=== PATIENT | female | born 1960 | race Caucasian/White ===

== ENCOUNTER 2023-12-25 08:50 | Emergency (ER) | payer OTHER, SELFPAY ==
[2023-12-25 08:57] VITALS: BP 132/59; PULSE 77; RESP 16; TEMP 36.6; O2SAT 99
--- NOTE | 2023-12-25 09:07 | ED.SKABFB ---
HPI - Skin/Abscess/Foreign Bdy General Chief complaint: Skin/Abscess/Foreign Body Stated complaint: Rash Waist and up Time Seen by Provider: 12/25/23 09:08 Source: patient, RN notes reviewed and old records reviewed Mode of arrival: ambulatory Limitations: no limitations History of Present Illness HPI narrative: 63 year old female who presents to [facility] care with complaints of itchy rash which started on Thursday night and is spreading with new area to the left side of neck noted today. Patient reports that she works at [employer] and normally wears gloves but didn't Thursday night and touched many hands when she was stamping for entry/reentry to [employer]. Patient initially noted area under chin and on forehead and area on her stomach with rash spreading to bilateral lower arms and also now on neck and increased area to stomach. Patient reports that she recently restarted her cholesterol medication but has been on same mediation before. She reports that she has been using some hydrocortisone to rash but hasn't helped. Patient denies being in may or any new skin products or any new laundry products or foods. complaint: rash Onset (ago): day(s) (2) Location: generalized Severity: moderate Quality: pruritic Treatments prior to arrival: other (hydrocortisone ream) Related Data Home Medications Medication Instructions Recorded Confirmed atorvastatin 10 mg tablet 10 mg PO DAILY 12/25/23 12/25/23 Allergies Allergy/AdvReac Type Severity Reaction Status Date / Time No Known Allergies Allergy Verified 12/25/23 09:04 Review of Systems Review of Systems: CONSTITUTIONAL: Denies fever, chills, or sweats. CARDIOVASCULAR: Denies chest pain, palpitations, or edema. RESPIRATORY: Denies cough or dyspnea. SKIN: Reports spreading red rash to face, chin, neck,abdomen, and forearms that is itchy MUSCULOSKELETAL: Denies joint pain or myalgia. NEUROLOGIC: Denies headache, numbness, or weakness. All systems reviewed & are unremarkable except as noted in HPI and below PMFSH Past Medical History Medical History (Updated 12/25/23 @ 09:39 by Yuliet Barcenas NP) Serum cholesterol elevated Surgical History Surgical History (Updated 12/25/23 @ 09:39 by Yuliet Barcenas NP) History of dilatation and curettage Social History Social History (Updated 12/25/23 @ 09:39 by Yuliet Barcenas NP) Smoking status: Never smoker Alcohol intake: current Alcohol use details: social Substance use type: does not use Living arrangements: with family Gender identity (if verbalized by the patient): Female Comments At time of signature, agree with nursing past medical, surgical, social and family history. There is no relevant family history pertinent to the presenting complaint Exam Narrative: GENERAL: Well-appearing, well-nourished, and in no acute distress. HEAD: Normocephalic, atraumatic. EYES: PERRLA, conjunctivae clear, and EOMI. ENT: Mucous membranes moist. Oropharynx without edema, erythema or lesions. NECK: Supple. No lymphadenopathy CHEST: Clear to auscultation. No respiratory distress. no cough or feelings of dyspnea, SAO2 99% on room air HEART: Regular rate and rhythm. SKIN: Warm, dry.? Patches of itchy flat red rash noted on forearms, chin,forehead, abdomen and neck, reports is spreading. NEURO:? Alert and oriented x3. PSYCH: Normal mood and affect Course Course Emergency Course: Patient is aware of diagnosis, understands and agrees to treatment plan.? Anticipatory guidance given.? Patient agrees to follow-up as directed and is aware of reasons to seek care at the emergency department. Portions of this record may have been created with voice recognition software Level of Care: Express Care Visit Vital Signs Vital signs: Vital Signs Temperature 36.6 C 12/25/23 08:57 Pulse Rate 77 12/25/23 08:57 Respiratory Rate 16 12/25/23 08:57 Blood Pressure 132/59 L 05
== END 2023-12-25 09:24 | disposition home or self-care (01) ==
PROVIDERS: Emergency Provider Registered Nurse
DX: L25.9 Unspecified contact dermatitis, unspecified cause (principal); E78.00 Pure hypercholesterolemia, unspecified
CPT/HCPCS: 99213; G0463

== ENCOUNTER 2024-12-01 14:14 | Emergency (ER) | payer OTHER, SELFPAY ==
--- OUTSIDE RECORDS SUMMARY | 2024-12-01 14:26 | XMS_ITS | Clinical Summary ---
Author Organization [address] Address [address] [place] [id number] Care Team Providers Care Neon Molder Name Role Phone No, Physician Primary Care Provider [phone] Allergies No known active allergies Medications aspirin 81 mg enteric coated tablet Take 1 tablet (81 mg total) by mouth daily 01/12/2024 5 Active rosuvastatin (CRESTOR) 20 mg tablet Take 1 tablet (20 mg total) by mouth daily 30 tablet 11 02/03/2024 5 Active Active Problems Problem Noted Date Diagnosed Date Chronic right-sided thoracic back pain Assessment & Plan (06/20/2024 1:[address] MAINTENANCE SUPERVISOR): - No red flag symptoms at this time - Discussed muscle relaxants as needed if pain returns - PT referral placed - Xray ordered today Piriformis syndrome of both sides 06/20/2024 Encounter for health maintenance examination 08/2023 Assessment & Plan (12/16/2023 12:17 PM CDT): HEALTH MAINTENANCE/SCREENING ITEMS Risk Assessments/Screenings: Blood pressure: Normal Diabetes: Ordered today Lipids: Ordered today STD testing declined Hep C: Ordered today Osteoporosis: Last Completed 05/2022; Results showed Osteopenia Depression: Depression: Not at risk (12/16/2023) PHQ-2 PHQ-2 Score: 0 Cancer Screenings: Breast: Completed 12/14/2023, results pending Cervical: Managed by OBGYN Colon: Completed in April 2020 Skin: Encouraged sun protection, advised to let us know of any suspicious lesions Lung: Not due at this time Immunizations: - up-to-date Cardiac murmur 04/09/2022 Hyperlipidemia 08/30/2021 Overview (07/22/2023): Last Assessment & Plan: ASCVD 10-year risk estimate calculated 05/28/2020 was 2.8%. Repeat lipids prior to next visit. Assessment & Plan (06/20/2024 1:[address] MAINTENANCE SUPERVISOR): - Chronic, stable - continue continue crestor Assessment & Plan (12/16/2023 12:14 PM CDT): - chronic, likely not well controlled given that she has been out of medication - refill Lipitor - recheck lipid panel today Elevated LFTs 03/13/2021 Overview (07/22/2023): Last Assessment & Plan: Trending down on most recent labs. Repeat prior to next visit. Assessment & Plan (06/20/2024 1:[address] MAINTENANCE SUPERVISOR): - Repeat LFTS now that she has increased statin Assessment & Plan (12/16/2023 12:15 PM CDT): - liver ultrasound reviewed - recheck liver function tests today Resolved Problems Problem Noted Date Diagnosed Date Resolved Date Abnormal menstrual cycle 12/16/202308/2023 Menometrorrhagia 12/16/2023 12/16/2023 Uterine leiomyoma 12/16/2023 12/16/2023 Chest pain on exertion 12/16/202306/20 Assessment & Plan (12/16/2023 12:18 PM CDT): - multiple risk factors - given this pain radiating to the left arm on exertion will further investigate with a stress test - restart Lipitor - no chest pain on exam today Trochanteric bursitis of both hips 06/19/2022 06/20/2024 Bilateral hip pain 08/30/2021 Overview (07/22/2023): Last Assessment & Plan: We will try 10-day course of nabumetone 500 mg twice daily. Also referred to physical therapy. Palpitations 08/30/2021 12/16/2023 Overview (07/22/2023): Last Assessment & Plan: Infrequent. Patient does have some dizziness/lightheadedness with the palpitations. Also reports questionable history of mitral valve pathology. We will check an echocardiogram. EKG was performed in the office today which showed normal sinus rhythm without any evidence of ischemia. Encounters Date Type Department Care Team Description 09/23/2024 Telephone [facility] at the [address] [phone] No, Physician from Last 3 Months Immunizations Immunization Administration Dates Next Due Influenza, Quadrivalent, Zeny l Culture-based MDCK, Preservative Free, Antibiotic Free, Intramuscular 06/16/2022 Influenza, Quadrivalent, Spl it, Intramuscular 05/17/2020,06/09/2019,05/11/2019 Influenza, Quadrivalent, Spl it, Preservative Free, Intramuscular 06/08/2023,06/02/2020,06/08/2018 Influenza, Trivalent, IM (MDV) 06/05/2021,2013 Influenza, Trivalent, Preser vative Free, Intramuscular 06/24/2017,06/26/2016 Influenza, Unspecified 06/20/2024(Deferr ed: Patient Refused),06/08/2023,06/02/2020, 019,05/11/2019,06/24/2017,06/26/2016 MMR 02/15/1990 Pfizer SARS-CoV-2 Monovalent Vaccination (12+ Yrs) PURPLE 10/06/2020,10/06/2020,09/08/2020,09/08 Sars-CoV-2, Unspecified 10/06/2020,09/08/2020 Td, adsorbed 02/15/1990 Tdap 06/08/2018 ZOSTER Recombinant 10/13/2018,05/03/2018 Surgical History Surgery Date Site/Laterality Comments TUBAL LIGATION 06/1994 Family History Medical History Relation Name Comments Hypertension Brother Deepak Ricketts Jr. Arthritis Father Deepak Ricketts Hypertension Father Deepak Ricketts Clotting disorder Father's Brother 1 Bang walker Clotting disorder Father's Brother 2 Denilson Ricketts Prostate cancer Maternal Grandfather Lars Macias Colon cancer Maternal Grandmother Claribel Macias Diabetes Maternal Grandmother Claribel Macias Breast cancer Maternal cousin Sonali Heart disease Mother Heather Walker Hypertension Mother Heather Walker Diabetes Mother's Brother 1 Gopi Macias Diabetes Mother's Brother 2 Denilson Macias Diabetes Mother's Brother 3 Troy Macias Cancer Paternal Grandfather Denilson Cuellar Walker Stroke Paternal Grandmother Aspen Ricketts Heart disease Sister Ruby Mckeon Hypertension Sister Ruby Mckeon Ovarian cancer Neg Hx Uterine cancer Neg Hx Relation Name Status Comments Brother Deepak Ricketts Jr. Father Deepak Ricketts Father's Brother 1 Bang walker Father's Brother 2 Denilson W Walker Maternal Grandfather Lars Macias Maternal Grandmother Claribel Macias Maternal cousin Sonali Alive Mother Heather Walker Mother's Brother 1 Gopi Macias Mother's Brother 2 Denilson Macias Mother's Brother 3 Troy Macias Paternal Grandfather Denilson A Walker Paternal Grandmother Aspen Walker Sister Rbuy Mckeon Social History Tobacco Use Types Packs/Day Years Used Date Smoking Tobacco: Never Smokeless Tobacco: Never Tobacco Cessation:Counseling Given: Not Answered Humiliation, Afraid, Rape, and Kick questionnair e Answer Date Recorded Within the last year, have y ou been afraid of your partner or ex-partner? No 08/16/2024 Within the last year, have y ou been humiliated or emotionally abused in other ways by your partner or ex-partner? No Within the last year, have y ou been kicked, hit, slapped, or otherwise physically hurt by your partner or ex-partner? No 08/16/2024 Within the last year, have y ou been raped or forced to have any kind of sexual activity by your partner or ex-partner? No 08/16/2024 PHQ-2 Answer Date Recorded PHQ-2 Total Score (If total score is 3 or more points, staff should administer the PHQ-9) 0 12/16/2023 Exercise Vital Sign Answer Date Recorde d Days of Exercise per Week Not on file 2023 On average, how many minutes do you engage in exercise at this level? 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 Not on file Not on file No t on file Obstetrics History Para Term AB IAB SAB Ectopic Multiple Livin g Live Births 4 3 3 1 1 3 3 Date Outcome GA Total Labor Labor/2nd/3rd Weight Sex Type Anes PTL Laura A1 A5 Name Clin Term Term Term SAB SAB Comments FTVD x 3 Last Filed Vital Signs Vital Sign Reading Time Taken Comments Blood Pressure 140/80 08/16/2024 10:[address] MAINTENANCE SUPERVISOR Pulse 69 06/22/2024 1:[address] MAINTENANCE SUPERVISOR Temperature 36.8 C (98.2 F) 06/22/2024 1:[address] MAINTENANCE SUPERVISOR Respiratory Rate 18 06/20/2024 11:[address] MAINTENANCE SUPERVISOR Oxygen Saturation 95% 06/20/2024 11:[address] MAINTENANCE SUPERVISOR Inhaled Oxygen Concentration - - Weight 78.2 kg (172 lb 6.4 oz) 08/16/2024 10:[address] MAINTENANCE SUPERVISOR Height 162.6 cm (5' 4 ) 08/16/2024 10:[address] MAINTENANCE SUPERVISOR Body Mass Index 29.59 08/16/2024 10:[address] MAINTENANCE SUPERVISOR Plan of Treatment Health Maintenance Due Date Last Done Comments Covid-19 Vaccine ( season) 2024 06/29/2023, 06/30/2022, 03/18/2022, Additional history exists Breast Cancer Screening-Mammogram 12/13/2024 12/14/2023, 06/01/2022, 05/30/2022, Additional history exists Depression Screening 12/15/2024 12/16/2023 Influenza Vaccine (Season Ended) 2025 06/08/2023, 06/08/2023, 06/16/2022, Additional history exists Regular Well Visit/Exam 18-64 08/16/2025 08/16/2024, 12/16/2023, 07/22/2023 Cervical Cancer Screening 11/15/2026 DTaP/Tdap/Td Vaccine (2 - Td or Tdap) 06/08/2028 06/08/2018, 02/15/1990 Colon Cancer Screening-Colonoscopy 05/16/2030 05/16/2020 Zoster Vaccine Completed 10/13/2018, 05/03/2018 Hepatitis B Screening Completed 01/14/2024 Hepatitis C Screening Completed 01/14/2024, 024 Pneumococcal vaccine <65 Aged Out No longer eligible based on patient's age to complete this topic Procedures Procedure Name Priority Date/Time Associated Diagnosis Comments HEPATIC FUNCTION PANEL Routine 09/23/2024 8:[address] MAINTENANCE SUPERVISOR Abnormal laboratory test Elevated LFTs Mixed hyperlipidemia LIPID PANEL Routine 09/23/2024 8:[address] MAINTENANCE SUPERVISOR Abnormal laboratory test Elevated LFTs Mixed hyperlipidemia HEPATITIS PANEL, ACUTE Routine 01/14/2024 7:56 AM CDT Abnormal laboratory test SCREENING MAMMOGRAM BILATERAL W TOMMY Schedule Routine, Read Routine (OP Routine) 12/14/2023 9:23 AM CDT Encounter for well woman exam with routine gynecological exam Encounter for screening mammogram for malignant neoplasm of breast from Last 3 Months or Most Recently Relevant to Health Maintenance Results * (ABNORMAL) Hepatic function panel (09/23/2024 8:[address] MAINTENANCE SUPERVISOR) Pathologist [facility] Protein, Total 7.2 6.4 - 8.4 g/dL [facility] Albumin 4.4 3.6 - 5.1 g/dL [facility] Globulin 2.8 2.2 - 4.0 g/dL (calc) [facility] Alb/glob ratio 1.6 0.9 - 2.3 (calc) [facility] Bilirubin, total 0.8 0.2 - 1.2 mg/dL [facility] Bilirubin, direct 0.2 < OR = 0.2 mg/dL [facility] Bilirubin, indirect 0.6 0.2 - 1.2 mg/dL (calc) [facility] Alk phos 68 37 - 153 U/L [facility] AST 49(H) 10 - 35 U/L [facility] ALT (SGPT) 25 6 - 29 U/L [facility] Blood 09/23/2024 8:[address] MAINTENANCE SUPERVIS[address] 09/23/2024 8:[address] MAINTENANCE SUPERVISOR Narrative [facility] - 09/24/2024 2:[address] MAINTENANCE SUPERVISOR FASTING:YES FASTING: YES us Gabrielle Hoffman MD LAB BLOOD ORDERABLES Final Result [facility] [id number] [phone] * Lipid panel (09/23/2024 8:[address] MAINTENANCE SUPERVISOR) Cholesterol 153 <200 mg/dL [facility] HDL 64 > OR = 50 mg/dL [facility] Triglycerides 131 <150 mg/dL [facility] LDL 68 mg/dL (calc) [facility] Comment: Reference range: <100 Desirable range <100 mg/dL for primary prevention; <70 mg/dL for patients with CHD or diabetic patients with > or = 2 CHD risk factors. LDL-C is now calculated using the Taj-Eben calculation, which is a validated novel method providing better accuracy than the Friedewald equation in the estimation of LDL-C. Taj AZUL et al. ELIAS. 2013;310(19): 6333-8126 (http://education.OnePageCRM.[employer]/faq/TUQ574) Chol/HDL ratio 2.4 <5.0 (calc) [facility] Non-HDL, (LDL+VLDL) 89 <130 mg/dL (calc) [facility] Comment: For patients with diabetes plus 1 major ASCVD risk factor, treating to a non-HDL-C goal of <100 mg/dL (LDL-C of <70 mg/dL) is considered a therapeutic option. Blood 09/23/2024 8:[address] MAINTENANCE SUPERVISOR 09/23/2024 8:[address] MAINTENANCE SUPERVISOR Narrative [facility] - 09/24/2024 3:[address] MAINTENANCE SUPERVISOR FASTING:YES FASTING: YES Gabrielle Hoffman MD LAB BLOOD ORDERABLES Final Result [facility] [address] [phone] * Hepatitis panel, acute Blood (01/14/2024 7:56 AM CDT) Hep A IgM NON-REACTI VE NON-REACT EVIN [facility] Comment: For additional information, please refer to http://[employer]/faq/UMH201 (This link is being provided for informational/ educational purposes only.) HepBsAg NON-REACTI VE NON-REACT EVIN [facility] Comment: For additional information, please refer to http://[employer]/faq/GQL608 (This link is being provided for informational/ educational purposes only.) Hep B core IgM NON-REACTI VE NON-REACT EVIN [facility] Comment: For additional information, please refer to http://[employer]/faq/BSG977 (This link is being provided for informational/ educational purposes only.) Hep C Ab NON-REACTI VE NON-REACT EVIN [facility] Comment: HCV antibody was non-reactive. There is no laboratory evidence of HCV infection. In most cases, no further action is required. However, if recent HCV exposure is suspected, a test for HCV RNA (test code 33964) is suggested. For additional information please refer to http://[employer]/faq/JBB09v1 (This link is being provided for informational/ educational purposes only.) Blood 01/14/2024 7:56 AM CDT 01/14/2024 7:57 AM CDT Narrative [facility] - 01/15/2024 7:46 AM CDT FASTING:YES FASTING: YES us Gabrielle Hoffman MD LAB MICROBIOLOGY - GENERAL ORDERABLES Final Result [facility] [id number] [phone] * Screening Mammogram Bilateral W Tommy (12/14/2023 9:23 AM CDT) Anatomical Region Laterality Modality Breast Bilateral Mammography 12/29/2023 8:23 AM CDT Impressions 12/29/2023 8:23 AM CDT There is no mammographic evidence of malignancy. A 1 year screening mammogram is recommended. BI-RADS: 1 - Negative. The patient has been or will be contacted. The patient will be entered into a reminder system with a target due date of 1 year for her next mammogram. Electronically signed by: Lamonte Parkinson M.D. Narrative 12/29/2023 8:23 AM CDT EXAMINATION: SCREENING MAMMOGRAM BILATERAL W TOMMY ORDERING HEALTHCARE PROVIDER: NDIHI HERNANDEZ HISTORY: Routine screening mammography. COMPARISON: Prior mammograms from [facility] ([place], [place]) dated 05/30/2022 and 04/25/2021. TECHNIQUE: CC and MLO views of the bilateral breasts were obtained with digital technique using breast tomosynthesis with C view. Computer aided detection was utilized. FINDINGS: DENSITY: The tissue of the bilateral breasts is heterogeneously dense, which may obscure small masses. BREASTS: There are no suspicious masses, suspicious calcifications, or other suspicious findings in either breast. There has been no suspicious interval change. us Nidhi Hernandez MD IMG MAMMO PROCEDURES Final Result from Last 3 Months or Most Recently Relevant to Health Maintenance Insurance [employer] [facility] [place]MO/[place] [address] [place] [address] Care Teams Neon Molder Relationship Specialty Start Date End Date No, Physician PCP - General 11/17/24
--- OUTSIDE RECORDS SUMMARY | 2024-12-01 14:26 | XMS_ITS | Data Portability ---
Author Organization MAYELA - Angelika plaza MD SIngridC., [facility] - IP Address [address] [place] [address] Care Team Providers Care Teleradiologist Name Role Phone REINA MCWILLIAMS Primary Care Provider Assessment Encounter Date Assessment Date Assessment LastModified by Organization Details LastModified Time 01/19/2018 01/19/2018 57 years old white female here for an annual PLYWOOD MATCHER examination. Patient is postmenopausal. She is has symptoms of hot flashes and night sweats. Patient however wants no HRT. She has tried wdng-igo-fcewhde supplements with no relief. Patient was recommended that she should take calcium with vitamin D twice a day. Calcium intake for the day was addressed. Patient recommended pelvic exam once a year. Pap smear every three years. Mammogram once a year. She is due for a colonoscopy in two years. Not available 01/19/2018 13:04:54 03/30/2019 03/30/2019 58 years old white female postmenopausal annual PLYWOOD MATCHER examination with severe symptoms of estrogen deficiency. Patient was counseled and recommended HRT patient wants to. Side effects risks and benefits of HRT was addressed. Patient was recommended low does HRT Prempro 0.3/1.5 mg one tablet Q daily. Patient was recommended one tablet for one daily for one month and if she doesn't feel better she can go up to two tablets a day. Patient to call as if she needs for prescription after 90 days. Patient was recommended that she should have screening mammogram once a year. Pelvic exam once a year. Pap smear every three years. Patient states she is due for a colonoscopy again soon. Recommended to continue calcium with vitamin D twice a day OTC. Not available 03/30/2019 15:35:15 04/10/2020 04/10/2020 59 years old postmenopausal white female annual PLYWOOD MATCHER examination. Her PLYWOOD MATCHER exam today is normal recommended pelvic exam once a year Paap smear every year. Screening mammogram Had one yesterday which is normal. Recommended to continue vitamin D3 as before. Not available 04/10/2020 11:42:45 04/26/2021 04/26/2021 61 years old white female here for an annual PLYWOOD MATCHER examination. PLYWOOD MATCHER exam reveals atropic vaginae a. She does have symptoms of estrogen deficiency however patient does not want to take any estrogen. Patient was recommended to try OTC supplements for her hot flashes and night sweats also recommended bed moisturizers [id number]-zpeqjtr. Recommended screening mammogram once a year. Pap smear every year. Pelvic exam once a year. Not available 04/26/2021 11:14:26 04/30/2022 04/30/2022 62 years old white female here for an annual PLYWOOD MATCHER examination. 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 Patient was counseled again regarding HRT side effects risks and benefits were addressed pros and cons of HRT was addressed patient was told that her out her benefits outweigh the risks patient also was counseled regarding benefits on the heart and asked in the bones to prevent osteoporosis. Patient recommended screening mammogram once a year patient to call and schedule. She also wants an automated breast ultrasound patient to call insurance first and get back to us and we will send the order. Patient also was recommended a bone density as she is being in menopause for 5 years now. Patient voices understanding patient was told that all of those needs to be called and scheduled at [facility]. Recommended pelvic exam once a year Pap smear every year. Patient question regarding her last year Pap of ASCUS negative HPV was addressed. Patient to continue vitamin D3 as before. She patient was provided with the website of menopause. org patient was recommended to go on the website and get more information and then call us if she decides to go on HRT. Not available 04/30/2022 12:24:04 Plan of Treatment Reminders Order Date Submit Date Provider Last Modified By Organization Details Last Modified Time Details Appointments None recorded. Lab pap, LB + HPV 2021 022 [facility] (Outpt Lab), [address] [place] [address], [address], 2 14:26:23 pap, LB + reflex HR HPV 2020 021 [facility] (Outpt Lab), [address] [place] [address], [address], 1 14:10:37 pap, LB + reflex HR HPV 2019 020 [facility] (Outpt Lab), [address] [place] [address], [address], 0 16:09:55 pap, LB + HPV 2018 019 [facility] (Outpt Lab), [address] [place] [address], [address], 9 14:26:16 pap, LB + reflex HR HPV 2017 018 [facility] ([facility]), [address], [place], [address], 8 13:57:43 Referral None recorded. Procedures None recorded. Surgeries None recorded. Imaging MAMMO, screening, bilateral 2021 022 [facility] (Central Scheduling), [address] [place] [address], [address], 2 06:51:22 bone density - [facility] usal 2021 [facility] [address] [place] [address], [address], 2 10:00:46 Medication Orders Prempro 0.3 mg-1.5 mg tablet 2018 019 [id number], [address] [place], [address], 9 15:32:04 Patient TargetsNo targets recorded. Patient Instructions Encounter Date Encounter Id Patient Instructions Last Modified By Organization Details Last Modified Time 01/19/2018 [id number] Follow-up in one year [place] [address] Not available 01/19/2018 13:05:12 03/30/2019 [id number] [facility] Not [facility] 03/30/2019 15:35:31 04/10/2020 [id number] Follow-up in one year [place] [address] Not available 04/10/2020 11:42:58 04/26/2021 [id number] Follow-up in one year [place] [address] Not available 04/26/2021 11:14:28 04/30/2022 [id number] Follow-up in 1 year [place] [address] Not available 04/30/2022 12:23:06 Reason for Referral None Reported. Results Created Date Observation Date Name Description Value Unit Range Abnormal Flag Note LastModifiedBy Organization Detail LastModifiedTime 01/20/20 18 01/21/2018 pap, LB Pap test thin prep NEGATI VE FOR INTRAE PITHEL IAL LESION OR MALIGN MARCO normal ACCES JANETH #: [id number] Sourc e: Cervi vladislav/E ndoce rvica l LMP: Post menop ausal Date Taken : 01/19 Speci men Type: ThinP rep Vial Date Repor syl: 01/21 Clini vladislav Data: LMP: Post menop ausal Cytot ech: Compa el Beu CT( CP) Speci men Adequ acy: Satis facto ry for evalu ation Endoc ervic al/tr ansfo rmati on zone compo nent prese nt Gener al Categ oriza tion: NEGAT EVIN FOR INTRA EPITH ELIAL LESIO N OR BRITTNEY LANDIN Study for HPV testi ng not indic ated. This speci men has been thompson zed by the ThinP rep Imagi ng Syste m, an inter activ e compu ter syste m which adilia ts the lab in the [facility] of ThinP rep Pap Test slide s. Follo wing imagi ng, the slide was revie wed by a Cytot echno logis t and/o r Patho logis t. Techn ical servi jesus provi ded by: [facility], [facility] d/b/a [facility] [address], [address] [place] [address] Saira cunningham M.D., [facility] Case revie wed and diagn osis rende red at: [facility] [address], [address] [place] [address] Saira cunningham M.D., [facility] ----- ----- ----- ----- ----- ----- ----- ----- ----- ----- ----- ----- Not Available [facility]) [facility] [place], [place], [address], 01/21/2018 13:57:43 03/30/20 19 03/30/2019 HPV DNA, high- risk HPV16 Negati ve for HPV type 16 DNA negati ve for HPV type [address] [facility] (Main Lab/Imaging) [address] [place], [address], 04/04/2019 13:31:51 03/30/2003/30/2019 HPV DNA, high- risk HPV18 Negati ve for HPV type 18 DNA negati ve for HPV type [address] [facility] (Main Lab/Imaging) [address] [place], [address], 04/04/2019 13:31:51 03/30/2003/30/2019 HPV DNA, high- risk other high risk HPV Negati ve for the DNA of all of the follow ing high-r isk HPV types: 31,33, 35,39, 49,51, 52,56, 59,66, 68. negati ve for the DNA of all of the follow ing high-r isk HPV t Not Available [facility] (Main Lab/Imaging) [address] [place], [address], 04/04/2019 13:31:51 03/30/20 19 03/30/2019 pap, IG + HR HPV lab AP case report Gynec ologi c Cytol ogy Repor t Case: [id number] Autho nick cabral Provi cedrick: Tanya posadas MD Colle cted: 03/30 1403 Order ing [facility]at [facility] Recei brigid: 03/31 1046 First Scree n: Terrance Miranda , CT Rescr een: Eriberto durant MD Speci men: ThinP rep Pap Test, Scree kera and HPV Detec tion Combi natio n, Image r Adilia syl, Cervi x/End ocerv ix Not Available [facility] (Main Lab/Imaging) [address] [place], [address], 04/06/2019 16:22:31 03/30/20 19 03/30/2019 pap, IG + HR HPV lab AP clinical information LMP: Post menop ausal Other Clini vladislav Data: Laser /cryo thera py and leep cone biops y Not Available [facility] (Main Lab/Imaging) [address] [place], [address], 04/06/2019 16:22:31 03/30/2003/30/2019 pap, IG + HR HPV lab AP profiler hand specimen adequacy Satisf actory for evalua tion; adequa te transf ormati on zone/e ndocer vical compon ent presen t. Not Available [facility] (Main Lab/Imaging) [address] [place], [address], 04/06/2019 16:22:31 03/30/20 19 03/30/2019 pap, IG + HR HPV lab AP profiler hand general categorizati on Squamo us cell abnorm ality. Not Available [facility] (Main Lab/Imaging) [address] [place], [address], 04/06/2019 16:22:31 03/30/20 19 03/30/2019 pap, IG + HR HPV [facility] lab lab AP profiler hand interpretati on abnormal Atypi vladislav squam ous cells of undet ermin ed bernardo nunez( CUS) Elect toya eddy by Eriberto durant MD on 2018 at 3:22 PM Not Available [facility] (Main Lab/Imaging) [address] [place], [address], 04/06/2019 16:22:31 03/30/20 19 03/30/2019 pap, IG + HR HPV comments Thompson sis of this sampl e has been adilia syl by an autom ated imagi ng and revie w syste m (Thin Prep Imagi ng Syste m, Cytyc Corpo ratio n, [facility] giorgio [place]). The case is furth er evalu ated and final ized by a cytot echno logis t and/o r patho logis t. Not Available [facility] (Main Lab/Imaging) [address] [place], [address], 04/06/2019 16:22:31 03/30/20 19 03/30/2019 pap, IG + HR HPV recommendati ons The Pap test is subje ct to both false -nega tive and false -posi tive resul ts, as evide nced by publi shed data. Your patie nt's resul ts shoul d be inter prete d in this tere xt, toget her with histo ry and clini vladislav findi ngs. Not Available [facility] (Main Lab/Imaging) [address] [place], [address], 04/06/2019 16:22:31 03/30/20 19 03/30/2019 pap, IG + HR HPV lab AP embedded images Not Available [facility] (Main Lab/Imaging) [address] [place], [address], 04/06/2019 16:22:31 04/10/20 20 04/10/2020 pap, IG + refle x HPV lab AP case report Gynec ologi c Cytol ogy Repor t Case: [id number] Autho nick cabral Provi cedrick: MD Edie Frank cted: 04/10 1019 Order ing [facility]at [facility] Recei brigid: 04/11 0710 First Scree n: Terrance Miranda , CT Speci men: ThinP rep Pap Test, Scree kera with HPV Refle x, Image r Adilia syl, Cervi x/End ocerv ix Not Available [facility] (Main Lab/Imaging) [address] [place], [address], 04/13/2020 15:42:12 04/10/20 20 04/10/2020 pap, IG + refle x HPV lab AP clinical information LMP: UNKNOW N Not Available [facility] (Main Lab/Imaging) [address] [place], [address], 04/13/2020 15:42:12 04/10/20 20 04/10/2020 pap, IG + refle x HPV lab AP profiler hand specimen adequacy SATISF ACTORY FOR EVALUA TION; ADEQUA TE TRANSF ORMATI ON ZONE/E NDOCER VICAL COMPON ENT PRESEN T. Not Available [facility] (Main Lab/Imaging) [address] [place], [address], 04/13/2020 15:42:12 04/10/20 20 04/10/2020 pap, IG + refle x HPV [facility] lab lab AP profiler hand interpretati on Negat evin for intra epith elial lesio n or brittney landin (NIL) . Elect toya eddy by Terrance Miranda , CT on 2019 at 2:41 PM Not Available [facility] (Main Lab/Imaging) [address] [place], [address], 04/13/2020 15:42:12 04/10/20 20 04/10/2020 pap, IG + refle x HPV comments Thompson sis of this sampl e has been adilia syl by an autom ated imagi ng and timmy w arnav m (Thin Prep Imagi ng Syste m, Cytyc Corpo ratio n, [employer] giorgio , [place]). The case is furth er evalu ated and final ized by a cytot echno logis t and/o r patho logis t. Not Available [facility] (Main Lab/Imaging) [address] [place], [address], 04/13/2020 15:42:12 04/10/20 20 04/10/2020 pap, IG + refle x HPV recommendati ons The Pap test is subje ct to both false -nega tive and false -posi tive resul ts, as evide nced by publi shed data. Your patie nt's resul ts shoul d be inter prete d in this tere xt, toget her with histo ry and clini vladislav findi ngs. Not Available [facility] (Main Lab/Imaging) [address] [place], [address], 04/13/2020 15:42:12 04/10/20 20 04/10/2020 pap, IG + refle x HPV lab AP embedded images Not Available [facility] (Main Lab/Imaging) [address] [place], [address], 04/13/2020 15:42:12 04/26/20 21 04/26/2021 THIN PREP PAP TEST WITH HPV REFLE X lab AP case report Gynec ologi c Cytol ogy Repor t Case: [id number] Autho nick g Provi cedrick: Tanya posadas MD Colle cted: 04/26 0949 Order ing [facility]at [facility] Recei brigid: 04/29 1152 First Scree n: Terrance Miranda , CT Patho logis t: Eriberto durant MD Speci men: ThinP rep Pap Test, Scree kera with HPV Refle x, Image r Adilia syl, Cervi x/End ocerv ix Not Available [facility] (Main Lab/Imaging) [address] [place], [address], 05/03/2021 12:51:04 04/26/20 21 04/26/2021 THIN PREP PAP TEST WITH HPV REFLE X lab AP clinical information LMP: Post menopa usal Not Available [facility] (Main Lab/Imaging) [address] [place], [address], 05/03/2021 12:51:04 04/26/20 21 04/26/2021 THIN PREP PAP TEST WITH HPV REFLE X lab AP profiler hand specimen adequacy Satisf actory for evalua tion; adequa te transf ormati on zone/e ndocer vical compon ent presen t. Not Available [facility] (Main Lab/Imaging) [address] [place], [address], 05/03/2021 12:51:04 04/26/20 21 04/26/2021 THIN PREP PAP TEST WITH HPV REFLE X lab AP profiler hand general categorizati on Squamo us cell abnorm ality. Not Available [facility] (Main Lab/Imaging) [address] [place], [address], 05/03/2021 12:51:04 04/26/20 21 04/26/2021 THIN PREP PAP TEST WITH HPV REFLE X [facility] lab lab AP profiler hand interpretati on abnormal Atypi vladislav squam ous cells of undet ermin ed bernardo nunez( CUS) Elect toya eddy by Eriberto durant MD on 2020 at 11:50 AM Not Available [facility] (Main Lab/Imaging) [address] [place], [address], 05/03/2021 12:51:04 04/26/20 21 04/26/2021 THIN PREP PAP TEST WITH HPV REFLE X comments Thompson sis of this sampl e has been adilia syl by an autom ated imagi ng and timmy josé m (Thin Prep Imagi ng Syste m, Cytyc Corpo ratio n, Emmett alvares [place]). The case is furth er evalu ated and final ized by a cytot echno logis t and/o r patho logis t. Dr. Fredy warner wed the case as part of the [facility] log[facility] quali ty assur ance proce ss and she concu rs with the diagn osis. Not Available [facility] (Main Lab/Imaging) [address] [place], [address], 05/03/2021 12:51:04 04/26/2004/26/2021 THIN PREP PAP TEST WITH HPV REFLE X recommendati ons The Pap test is subjec t to both false- negati ve and false- positi ve result s, as eviden carroll by publis hed data. Your patien t's result s should be interp reted in this contex t, togeth er with histor y and clinic al findin gs. Not Available [facility] (Main Lab/Imaging) [address] [place], [address], 05/03/2021 12:51:04 04/26/2004/26/2021 HPV DNA PROBE , AMPLI FIED HPV16 Negati ve for HPV type 16 DNA negati ve for HPV type 16 DNA, indete rminat e for HPV type [address] [facility] (Main Lab/Imaging) [address] [place], [address], 05/07/2021 14:43:50 04/26/2004/26/2021 HPV DNA PROBE , AMPLI FIED HPV18 Negati ve for HPV type 18 DNA negati ve for HPV type 18 DNA, indete rminat e for HPV type [address] [facility] (Main Lab/Imaging) [address] [place], [address], 05/07/2021 14:43:50 04/26/20 21 04/26/2021 HPV DNA PROBE , AMPLI FIED other high risk HPV Negati ve for the DNA of all of the follow ing high-r isk HPV types: 31,33, 35,39, 49,51, 52,56, 59,66, 68. negati ve for the DNA of all of the follow ing high-r isk HPV t Not Available [facility] (Main Lab/Imaging) [address] [place], [address], 05/07/2021 14:43:50 04/30/20 22 04/30/2022 HPV DNA PROBE , AMPLI FIED HPV16 Negati ve for HPV type 16 DNA negati ve for HPV type 16 DNA, indete rminat e for HPV type 16 Not Available [facility] (Main Lab/Imaging) [address] [place], [address], 05/01/2022 13:45:18 04/30/20 22 04/30/2022 HPV DNA PROBE , AMPLI FIED HPV18 Negati ve for HPV type 18 DNA negati ve for HPV type 18 DNA, indete rminat e for HPV type 18 Not Available [facility] (Main Lab/Imaging) [address] [place], [address], 05/01/2022 13:45:18 04/30/20 22 04/30/2022 HPV DNA PROBE , AMPLI FIED other high risk HPV Negati ve for the DNA of all of the follow ing high-r isk HPV types: 31,33, 35,39, 49,51, 52,56, 59,66, 68. negati ve for the DNA of all of the follow ing high-r isk HPV t Not Available [facility] (Main Lab/Imaging) [address] [place], [address], 05/01/2022 13:45:18 04/30/20 22 04/30/2022 THIN PREP PAP TEST, MARTINEE KERA diagnosis: Commen t NEGAT EVIN FOR INTRA EPITH ELIAL LESIO N OR MALPAKO LANDIN . Not Available [facility] (Main Lab/Imaging) [address] [place], [address], 05/07/2022 15:07:28 04/30/20 22 04/30/2022 THIN PREP PAP TEST, SCREE KERA specimen adequacy: Sergei t Satis facto ry for evalu ation . Endoc ervic al and/o r squam ous metap lasti c cells (endo cervi vladislav compo nent) are prese nt. Not Available [facility] (Main Lab/Imaging) [address] [place], [address], 05/07/2022 15:07:28 04/30/20 22 04/30/2022 THIN PREP PAP TEST, SCREE KERA clinician provided ICD10: Sergei cunningham Z01.4 19 Not Available [facility] (Main Lab/Imaging) [address] [place], [address], 05/07/2022 15:07:28 04/30/20 22 04/30/2022 THIN PREP PAP TEST, SCREE KERA performed by: Rhonda Robertson (ASCP ) Not Available [facility] (Main Lab/Imaging) [address] [place], [address], 05/07/2022 15:07:28 04/30/20 22 04/30/2022 THIN PREP PAP TEST, SCREE KERA . . Not Available [facility] (Main Lab/Imaging) [address] [place], [address], 05/07/2022 15:07:28 04/30/20 22 04/30/2022 THIN PREP PAP TEST, SCREE KERA note: Sergei cunningham The Pap smear is a scree kera test desig domenica to aid in the detec tion of sandra ligna nt and malig nant condi tions of the uteri ne cervi x. It is not a diagn ostic proce dure and shoul d not be used as the sole means of detec ting cervi vladislav cance r. Both false -posi tive and false -nega tive repor ts do occur . Not Available [facility] (Main Lab/Imaging) [address] [place], [address], 05/07/2022 15:07:28 04/30/20 22 04/30/2022 THIN PREP PAP TEST, SCRENelda REYESG Pap Ig Commen t This liqui d based ThinP rep(R ) pap test was scree domenica with the use of an image guide d syste m. Not Available [facility] (Main Lab/Imaging) [address] [place], [address], 05/07/2022 15:07:28 01/14/20 18 scree kera mammo 3D - bilat eral DICTAT ING PHYSIC DONAVAN: Dedrick collado DO, [facility]. EXAM: SCREEN ING MAMMO 3D - BILATE RAL 018 11:57 AM COMPAR PHUC: Mammog marshall dated 017, 2014, 2013, 013, 04/24/20 12, 03/06/ 011, 01/25/2 010, 11/27/2 009, 09/02/ 008, 007 HISTOR Y: Annual screen ing mammog marshall. No compla ints. TECHNI QUE: Standa rd bilate ral mammog raphic views were obtain ed. Additi onal 3-D tomogr aphic mammog marshall was also obtain ed (tomos ynthes is, which consis ts of multip lanar projec tions with comput er image recons tructi on into 1 mm parall el slices ). Curren t study was also evalua syl with a Comput er Aided Detect ion (CAD) system . FINDIN GS: The tissue densit y of both breast s are scatte red areas of fibrog landul ar densit y. There are no suspic ious masses , calcif icatio ns, or other signif icant findin gs. There has been no signif icant interv al change . IMPRES JANETH: There is no mammog raphic eviden ce of malign marco. RECOMM ENDATI ON: Annual screen ing mammog marshall. BIRADS 1: Negati ve [facility] (Main Lab/Imaging) [address] [place], [address], 01/19/2018 12:17:46 03/29/20 19 03/16/2019 MAMMO , scree kera, bilat eral No observ ation record ed. [facility] [address] , [place], [address], 03/30/2019 15:18:06 04/09/20 20 MAMMO , scree kera, bilat eral DICTAT ING PHYSIC DONAVAN: Dedrick collado DO, [facility]. EXAM: SCREEN ING MAMMO 3D - BILATE RAL 020 8:15 AM COMPAR PHUC: Mammog marshall dated 019, 018, 017, 2014, 2013, 013, 04/24/20 12, 03/06/2 011, 01/25/2 010, 11/27/2 009, 09/02/ 008, 08/31/ 007 HISTOR Y: Annual screen ing mammog marshall. No compla ints. TECHNI QUE: Standa rd bilate ral mammog raphic views were obtain ed. Additi onal 3-D tomogr aphic mammog marshall was also obtain ed. Curren t study was also evalua syl with a Comput er Aided Detect ion (CAD) system . FINDIN GS: The tissue densit y of both breast s are hetero genous ly dense, which may obscur e small masses . There are no suspic ious masses , calcif icatio ns, or other signif icant findin gs. There has been no signif icant interv al change . IMPRES JANETH: There is no mammog raphic eviden ce of malign marco. RECOMM ENDATI ON: Annual screen ing mammog marshall. BIRADS 1: Negati ve [facility] (Main Lab/Imaging) [address] [place], [address], 04/09/2020 17:53:42 04/25/20 21 MAMMO , scree kera, bilat eral DICTAT ING PHYSIC DONAVAN: Benji Hamilton MD EXAM: SCREEN ING MAMMO 3D - BILATE RAL 04/25/20 21 7:45 AM COMPAR PHUC: Mammog marshall dated 020, 019 HISTOR Y: Annual screen ing mammog marshall. No compla ints. TECHNI QUE: Standa rd bilate ral mammog raphic views were obtain ed. Additi onal 3-D tomogr aphic mammog marshall was also obtain ed. Curren t study was also evalua syl with a Comput er Aided Detect ion (CAD) system . FINDIN GS: The tissue densit y of both breast s are hetero genous ly dense, which may obscur e small masses (Categ ory C). There are no suspic ious masses , calcif icatio ns, or other signif icant findin gs. There has been no signif icant interv al change . IMPRES JANETH: There is no mammog raphic eviden ce of malign marco. RECOMM ENDATI ON: Annual screen ing mammog marshall. BIRADS 1: Negati ve [facility] (Main Lab/Imaging) [address] [place], [address], 04/26/2021 11:02:27 06/01/20 22 MAMMO , screnelda reyesg, bilat eral PROCED URE: SCREEN ING MAMMO 3D - BILATE RAL INDICA TION: Annual screen ing mammog marisa. No compla ints. TECHNI QUE: Standa rd bilate ral mammog raphic views were obtain ed. Additi onal 3D tomogr aphic mammog marshall was also obtain ed. Curren t study was also evalua syl with a Comput er Aided Detect ion (CAD) system . COMPAR PHUC: Compar phuc made with previo us examin ation( s) dated (MG) , (MG) . FINDIN GS: The breast s are hetero geneou sly dense, which may obscur e small masses . (Categ ory C) No suspic ious masses , calcif icatio ns, nicholas ectura l distor tion or other findin gs. IMPRES JANETH: There is no mammog raphic eviden ce of malign marco. RECOMM ENDATI ON: Annual screen ing mammog marshall. BIRADS 1: Negati ve. [facility] (Main Lab/Imaging) [address] [place], [address], 06/01/2022 13:34:19 06/12/20 22 bone densi ty DEXA BONE DENSIT Y ROUTIN E : 2021 9:56 AM DICTAT ING PHYSIC DONAVAN: Chris gage MD, [facility] HISTOR Y: As below. ADDITI ONAL TECHNO LOGIST HISTOR Y: Per order screen ing for osteop orosis , post menopa usal COMPAR PHUC: None. TECHNI QUE: Dual energy x-ray absorp tiomet ry was perfor med. FINDIN GS: Lumbar spine: BMD 0.947 g/cm2, T score -0.9 , Z score 0.6 , classi ficati on Normal . The lowest densit y level is L4 with a T score of -1.6. Right femora l neck: BMD 0.711 g/cm2 , T score -1.2 , Z score 0.1 , classi ficati on Osteop enia. Right total hip: BMD 0.873 g/cm2 , T score -0.6 , Z score 0.4 , classi ficati on Normal . IMPRES JANETH: Right femora l neck osteop enia. FRAX assess ment would indica te a 10 year probab ility of major osteop orotic fractu re of 7.4 %, and hip fractu re of 0.5 %. dguiney [facility] (Main Lab/Imaging) [address] [place], [address], 06/25/2022 10:00:46 08/12/20 22 US, autom ated whole breas t, bilat eral DICTAT ING PHYSIC DONAVAN: Benji Hamilton MD, [facility]. EXAM: ULTRAS OUND BREAST SCREEN ING (ABUS) BILATE RAL 2021 2:00 PM COMPAR PHUC: Mammog marshall dated 2021 HISTOR Y: Screen ing bilate ral breast ultras ound for dense breast s. No compla ints. TECHNI QUE: Bilate ral 3D Automa syl whole breast ultras ound was perfor med utiliz ed the 6-15 MHz GE Inveni a ABUS system . All four quadra nts of the right and left breast and subare olar region s were evalua syl. FINDIN GS: The backgr ound echote xture of both breast s are hetero genous backgr ound echote xture. There are no suspic ious sonogr aphic findin gs in either breast . IMPRES JANETH: There is no sonogr aphic eviden ce of malign marco. RECOMM ENDATI ON: Annual screen ing mammog marshall. BIRADS 1: Negati ve dguiney [facility] (Main Lab/Imaging) [address] [place], [address], 08/19/2022 10:44:51 Result Notes None recorded. Problems Name Problem SNOMED Code Status Onset Date Resolution Date Notes Provider Name and Address Organization Details Recorded Time Abnormal menstrual cycle 51762519 Active Angelika tran MD [address], [address], [place] - Angelika Capone MD [facility] 6 17:49:21 Menometrorrhag ia 772962361 Active Angelika tran MD [address], [address], [place] - Angelika Capone MD [facility] 6 17:49:21 Uterine leiomyoma 99095944 Active Angelika tran MD [address] [facility] [address], [place], [address], MAYELA Capone MD [facility] 6 21:40:00 Problem Notes None recorded. Procedures Surgical History Date Name Laterality Status Provider Name and Address Organization Details Recorded Time 04/30/20 22 Date of Last Pap Smear completed Belle Capone MD [facility] 04/30/2022 11:55:55 04/25/20 21 Most Recent Mammogram completed Belle Capone MD [facility] 04/26/2021 10:46:31 05/16/20 20 Colonoscopy completed Belle Capone MD [facility] 04/26/2021 10:48:35 10/05/19 14 Dilation and Curettage completed Amalia Capone MD [facility] 10/20/2014 15:20:02 10/05/19 14 Hysteroscopy completed Amalia Capone MD [facility] 10/20/2014 15:20:02 Imaging Results Imaging Date Name Status LastModified by Organiz ation Details LastModified Time 01/13/2018 screening mammo 3D - bilateral completed [address] [facility] (Main Lab/Imaging) [address] [place], [address], 01/19/2018 12:17:46 03/16/2019 MAMMO, screening, bilateral completed [address] [facility] [address] [place] [address] [place], [address], 03/30/2019 15:18:06 04/09/2020 MAMMO, screening, bilateral completed [address] [facility] (Main Lab/Imaging) [address] [place], [address], 04/09/2020 17:53:42 04/25/2021 MAMMO, screening, bilateral completed [address] [facility] (Main Lab/Imaging) [address] [place], [address], 04/26/2021 11:02:27 06/01/2022 MAMMO, screening, bilateral completed [facility] (Main Lab/Imaging) [address] [place], [address], 06/01/2022 13:34:19 06/12/2022 bone density completed [facility] (Main Lab/Imaging) [address] [place], [address], 06/25/2022 10:00:46 08/12/2022 US, automated whole breast, bilateral completed [facility] (Main Lab/Imaging) [address] [place], [address], 08/19/2022 10:44:51 Procedure Notes None recorded. Medical Equipment None Reported. Allergies No known drug allergies Medications Name Sig Start Date Stop Date Status Note LastModified by Organization Details LastModified Time cyclobenzap rine 10 mg tablet active Not Available Not Available Not Available amoxicillin 500 mg capsule active Not Available Not Available Not Available medroxyprog esterone 10 mg tablet Take 1 tablet every day by oral route for 10 days. 01/19 completed Not Available Not Available Not Available atorvastati n 10 mg tablet TAKE ONE TABLET BY MOUTH ONCE DAILY active Not Available Not Available No t Available ibuprofen 800 mg tablet TAKE ONE TABLET BY MOUTH EVERY SIX HOURS NEEDED for mild pain for up to 7 days 04/26 completed Not Available Not Available Not Available hydrocodone 5 mg-acetamin ophen 325 mg tablet active Not Available Not Available No t Available meloxicam 15 mg tablet active Not Available Not Available Not Available prednisone 20 mg tablet 01/19 completed Not Available Not Available Not Available nabumetone 500 mg tablet TAKE ONE TABLET BY MOUTH TWO TIMES DAILY FOR 10 DAYS 04/30 completed Not Available Not Available Not Available Prempro 0.3 mg-1.5 mg tablet TAKE ONE TABLET BY MOUTH AT BEDTIME 04/07 completed Not Available Not Available Not Available Calcium 500 + D (D3) active Not Available Not Available Not Available azelastine 205.5 mcg (0.15 %) nasal spray 11/10 completed Not Available Not Available Not Available Suprep Bowel Prep Kit 17.5 gram-3.13 gram-1.6 gram oral solution 04/26 completed Not Available Not Available Not Available Cyclafem (28) 1 mg-35 mcg tablet active Not Available Not Available Not Available ICaps AREDS 04/30 completed Not Available Not Available Not Available Fluvirin 3654-9429 45 mcg (15 mcg x 3)/0.5 mL intramuscul ar suspension INJECT 0.5 ML INTRAMUSC ULARLY DIRECTED. active Not Available Not Available No t Available Fluvirin 9250-7198 45 mcg (15 mcg x 3)/0.5 mL intramuscul ar suspension ADM 0.5ML IM UTD 11/10 completed Not Available Not Available Not Available Shingrix (PF) 50 mcg/0.5 mL intramuscul ar suspension, kit ADM 0.5ML IM UTD 03/30 completed Not Available Not Available Not Available Afluria Quad 0208-8013 (PF) 60 mcg (15 mcg x 4)/0.5 mL IM syringe ADM 0.5ML IM UTD 03/30 completed Not Available Not Available Not Available Afluria Qd 2018- (36 mos up)(PF)60 mcg (15 mcg x4)/0.5 mL IM syringe ADM 0.5ML IM UTD 04/07 completed Not Available Not Available Not Available ID NOW COVID-19 Test Kit TEST DIRECTED TODAY 04/30 completed Not Available Not Available Not Available Vitals Date Recorded Body weight Body mass index (BMI) Body height Heart rate Systolic blood pressure Diastolic blood pressure Provider Name and Address Organization Details Last Updated DateTime 8 34686.2 g 25.1 kg/m2 162.56 cm 66 /min 124 mm[Hg] 82 mm[Hg] Belle Capone [facility] 8 11:52:10 Date Recorded Body height Body mass index (BMI) Body weight Systolic blood pressure Diastolic blood pressure Provider Name and Address Organization Details Last Updated DateTime 03/30/2019 162.56 cm 26.5 kg/m2 56615.66 g 124 mm[Hg] 70 mm[Hg] Belle Capone [facility] 9 15:05:17 Date Recorded Body height Body mass index (BMI) Body weight Systolic blood pressure Diastolic blood pressure Provider Name and Address Organization Details Last Updated DateTime 04/10/2020 162.56 cm 27.3 kg/m2 84671.19 g 118 mm[Hg] 78 mm[Hg] Belle Capone [facility] 0 11:21:11 Date Recorded Body height Body mass index (BMI) Body weight Systolic blood pressure Diastolic blood pressure Provider Name and Address Organization Details Last Updated DateTime 04/26/2021 162.56 cm 28.1 kg/m2 17994.71 g 120 mm[Hg] 70 mm[Hg] Belle Capone [facility] 1 10:50:41 Date Recorded Body height Body weight Systolic blood pressure Diastolic blood pressure Provider Name and Address Organization Details Last Updated DateTime 04/30/2022 162.56 cm 34717.27 g 126 mm[Hg] 82 mm[Hg] Belle Capone MD [facility] 04/30/2022 12:00:11 Social History Question Answer Notes LastModified by Organizat ion Details LastModified Time Tobacco Smoking Status Never Smoker Angelika Capone MD [address], [address], MAYELA Capone [facility] 09/21/2014 14:54:52 Do You Have An Advance Directive? Yes [email or web address] Information not available 10/20/2014 What Is Your Level Of Alcohol Consumption? None [email or web address] Information not available 10/20/2014 Are You Blind Or Do You Have Difficulty Seeing? No [email or web address] Information not available 04/10/2020 Is Blood Transfusion Acceptable In An Emergency? Yes Information not available 10/20/2014 What Is Your Level Of Caffeine Consumption? Occasional [email or web address] Information not available 03/30/2019 How Much Tobacco Do You Chew? None Information not available 10/20/2014 In The 14 Days Before Symptom Onset, Have You Had Close Contact With A Laboratory-confir med COVID-19 While That Case Was Ill? No Information not available 04/30/2022 In The 14 Days Before Symptom Onset, Have You Had Close Contact With A Person Who Is Under Investigation For COVID-19 While That Person Was Ill? No Information not available 04/30/2022 In The 14 Days Before Symptom Onset, Did The Patient Spend Time In [facility]? No Information not available 04/30/2022 Have You Been To An Area Known To Be High Risk For COVID-19? No Information not available 04/30/2022 Are You Currently Employed? No [email or web address] Information not available 04/10/2020 Are You Deaf Or Do You Have Serious Difficulty Hearing? No Information not available 04/10/2020 What Type Of Diet Are You Following? REGULAR [email or web address] Information not available 10/20/2014 Which Illicit Or Recreational Drugs Have You Used? Denies Information not available 03/30/2019 Do You Or Have You Ever Used E-cigarettes Or Vape? Never Used Electronic Cigarettes Information not available 04/30/2022 Education Post Graduate Information not available 04/30/2022 What Is Your Occupation? Retired [email or web address] Information not available 03/30/2019 Have There Been Any Changes To Your Family Or Social Situation? No Information no t available 04/10/2020 Are There Any Guns Present In Your Home? No Information not available 04/10/2020 Hard Of Hearing Or Deaf In One Or Both Ears? No Information not available 04/30/2022 High Blood Pressure No Information not available 04/30/2022 High Cholesterol Yes Informat ion not available 04/30/2022 Live Alone Or With Others? With Others Information not available 04/30/2022 Have You Traveled Outside The [place] Or Taken A Cruise In The Late 14 Days? No Information no t available 04/10/2020 Marital Status Informatio n not available 04/30/2022 What Was The Date Of Your Most Recent Tobacco Screening? 04/30/2022 [email or web address] Information not available 04/30/2022 How Many Children Do You Have? 3 Information not available 10/20/2014 Performs Monthly Self-breast Exam? Yes Information no t available 04/30/2022 Do You Use Protection During Sex? No [email or web address] Information not available 10/20/2014 What Is Your Relationship Status? [email or web address] Information not available 04/26/2021 Do You Use Your Seat Belt Or Car Seat Routinely? Yes Information not available 04/26/2021 Seat Belts Used Routinely Yes Information not available 04/30/2022 Are You Sexually Active? Yes [email or web address] Information not available 10/20/2014 Do You Or Have You Ever Used Smokeless Tobacco? Never Used Smokeless Tobacco Information not available 04/30/2022 How Much Tobacco Do You Smoke? No [email or web address] Information not available 10/20/2014 General Stress Level Low Information not available 04/30/2022 Do You Use Any Illicit Or Recreational Drugs? No Information not available 04/30/2022 Do You Use Sunscreen Routinely? Yes Sometimes [email or web address] Information not available 10/22/2015 How Many Years Have You Smoked Tobacco? 0 Information not available 03/29/2019 Have You Recently Traveled Abroad? No Information not available 04/30/2022 Do You Or Have You Ever Used Any Other Forms Of Tobacco Or Nicotine? No Information not available 04/30/2022 Sex: Unknown Functional Status Question Answer Note LastModified by Organizat ion Details LastModified Time Do you have difficulty walking or climbing stairs? No [email or web address] Information not available 04/10/2020 Do you have difficulty doing errands alone? No [email or web address] Information not available 04/10/2020 Do you have difficulty dressing or bathing? No [email or web address] Information not available 04/10/2020 What is your exercise level? Moderate [email or web address] Information not available 01/19/2018 Mental Status Question Answer Note LastModified by Organization D etails LastModified Time Do you have difficulty concentrating, remembering or making decisions? No [email or web address] Information no t available 04/10/2020 Family History Relationship Description Onset Age of this Age Resolved Age Notes LastModified by Organization Details LastModified Time Father Hypertensive disorder Not available 17:49:33 Mother Hypertensive disorder Not available 17:49:33 Mother Heart disease [email or web address] Not available 2017 11:56:12 Mother Hypothyroidi sm [email or web address] Not available 2021 11:24:07 Mother Gout [email or web address] Not available 11:24:07 Mother Transient global amnesia [email or web address] Not available 2021 11:24:07 Mother Non-alcoholi c fatty liver [email or web address] Not available 2021 11:24:07 Unspecified Relation Malignant tumor of breast 50 matern al cousin [email or web address] Not available 04/10/2020 11:16:00 Brother Hypertensive disorder [email or web address] Not available 2017 11:56:39 Brother Hyperlipidem ia [email or web address] Not available 2021 11:24:07 Sister Hypertensive disorder Not available 2017 11:56:44 Maternal Grandfather Malignant tumor of prostate [email or web address] Not available 2021 11:24:07 Maternal Grandmother Malignant tumor of colon [email or web address] Not available 2017 11:57:32 Maternal Grandmother Cerebrovascu lar accident [email or web address] Not available 11:24:07 Maternal Uncle Diabetes mellitus X 3 uncles [email or web address] Not available 01/19/2018 11:59:34 Paternal Grandfather Malignant tumor of lung [email or web address] Not available 2021 11:24:07 Paternal Grandmother Colitis [email or web address] Not available 2021 11:24:07 Medical History Condition Response Other N Breast Cancer N Depression N Defects or Inherited Disease N Breast Problem N Headaches/Migraines N Arthritis N Infertility N Cancer N High Cholesterol N Kidney Disease N Heart Problems Y Rheumatic fever N Bleeding disorder N Thyroid Problems N Kidney or Bladder Problems N Eating Disorder N Psychiatric Illness N Ovarian Cancer N Diabetes N Blood Transfusions N Tuberculosis N AIDS N Abuse/Domestic Violence N Asthma N Epilepsy N Hepatitis N Heart Disease N Hypertension N Osteoporosis N Gynecological History Statement/Question Response Abnormal Pap N Post coital bleeding N Post Menopausal Bleeding N HPV Vaccine N Age at Menarche 11 Current Control Method Menopause Most Recent Mammogram 04/25/2021 Age at First Child 29 Painful sexual intercourse N Sexually Active? Y Menses Monthly No Missed more than 6 consecutive periods Y Date of Last Pap Smear 04/30/2022 Sexual Problems? N LMP Definite Hormone Replacement Therapy N Obstetrics History GPAL:G 4 P 3 0 1 3 Type Value Full Term 3 Spontaneous 1 Living 3 Total 4 Immunizations Vaccine Type Date Status Note Provider Nam e and Address Organization Details Recorded Time Influenza, split virus, quadrivalent, preservative 9 completed [facility]ELA Flower [facility] 04/10/2020 11:17:23 Influenza, split virus, quadrivalent, preservative 0 completed [facility]ELA Flower [facility] 04/26/2021 10:45:25 SARS-COV-2 (COVID-19) vaccine, UNSPECIFIED 1 completed MAYELA Flower [facility] 04/26/2021 10:45:44 SARS-COV-2 (COVID-19) vaccine, UNSPECIFIED 1 completed MAYELA Flower [facility] 04/26/2021 10:45:49 Past Encounters Encounter ID Performer Location Encounter Start Date Encounter Closed Date Diagnosis/Indication Diagnosis SNOMED-CT Code Diagnosis ICD10 Code Diagnosis Note [id number] Angelika posadas MD Main Office [address] [address] 09/20/2014 15:51:06 09/20/2014 17:02:51 Abnormal menstrual cycle 60648030 Menometrorrhagia 021688142 Uterine leiomyoma 19628129 [id number] Angelika posadas MD Main Office [address] [address] 10/20/2014 14:54:04 10/20/2014 15:49:24 Postoperative visit [id number] Angelika posadas MD Main Office [address] [address] 10/22/2015 17:37:23 10/22/2015 18:11:05 Gynecologic examination 55466814 Z01.419 Uterine leiomyoma 289561 05 D25.9 [id number] Celina Le Main Office [address] [address] 11/10/2016 10:01:12 11/10/2016 10:47:10 Gynecologic examination 60986016 Z01.419 Screening mammography 24 778997 Z12.31 Menorrhagia 604720976 N9 2.0 [id number] Angelika posadas MD Main Office [address] [address] 01/19/2018 11:41:24 01/19/2018 12:29:51 Gynecologic examination 78788599 Z01.419 Menopausal symptom 86172 002 N95.1 [id number] Angelika posadas MD Main Office [address] [address] 03/30/2019 14:53:02 03/30/2019 15:45:41 Gynecologic examination 34529668 Z01.419 Menopausal symptom 75689 002 N95.1 Hormone re placement therapy started 608581726 Z79.890 [id number] Angelika posadas MD Main Office [address] [address] 04/10/2020 10:51:52 04/10/2020 11:41:50 Gynecologic examination 33846774 Z01.419 [id number] Angelika posadas MD Main Office [address] [address] 04/26/2021 10:40:02 04/26/2021 11:11:22 Gynecologic examination 92688381 Z01.419 Menopausal symptom [address] soliz on intercourse 483689967 N89.8 [id number] Angelika posadas MD Main Office [address] [address] 04/30/2022 11:23:44 04/30/2022 12:26:33 Gynecologic examination 32756487 Z01.419 Screening mammography 24 095886 Z12.31 Screening for osteoporosis 773427186 Z13.820 Menopausal symptom 72132 002 N95.1 Health Concerns Section Related Observation LastModified by Organization Detai ls LastModified Time None Recorded Concern Status LastModified by Organization Details LastModified Time None Recorded Advance Directives Directive Y: Payers Encounter Date Sequence Insurance Name Policy Number Policy Lafleur Covered Member ID Lafleur Member ID Guarantor Name 01/19/2018 1 [place] [id number] Abel Bonilla [id number] Edith Posadas Bonilla 03/30/2019 1 [place] [id number] Abel Eddy Bonilla [id number] Edith Posadas Bonilla 04/10/2020 1 [place] [id number] Abel Eddy Bonilla [id number] Edith Posadas Bonilla 04/26/2021 1 [place] [id number] Abel Eddy Bonilla [id number] Edith Posadas Bonilla 04/30/2022 1 [place] [id number] Abel Eddy Bonilla [id number] Edith Bonilla Notes Date Note Type Note Provider Name and Address Organization Details Recorded Time 01/19/2018 text/html Annual [employer] M[employer]ER Pap/PelvicReported bypatient.Notes:57 years old white female here for an annual [employer]YWO[employer] M[employer]ER examination. Patient today offers no complaints. She had in FSH done last in January of last year which was significantly elevated suggestive of menopause. Patient has not had a menstrual cycle for more than one year now. She was taking eqvm-nib-yrifzmg amberin for hot flashes and night sweats for three months she said she did not notice any difference her she stopped taking it. She is continues to have hot flashes and night sweats. She states she is doing better with that. She wants no HRT. She denies any problem with sexual activity. Denies any weight l gain. She has lost a few pounds she states she's been trying to eat healthy with the food fuel and weight watchers.Her last mammogram was done on January 13 of this year which was normalShe a colonoscopy eight years ago which was normal she states she is good for 10 years. She denies any bowel complains denies any other systemic complains. Angelika Capone MD [facility] [address], [address], [facility] - Angelika Capone MD [facility] 01/19/2018 13:05:31 03/30/2019 text/html Annual [employer]YWOOD MATCHER Pap/PelvicReported bypatient.Notes:58 years old white female here for an annual [employer]YWOOD M[employer]ER examination. Patient today complains that she has severe hot flashes and night sweats it makes her not to sleep well. Patient states she is in been in menopause and she was hoping that the symptoms will go away but it has not. She also complains of vaginally dryness and pain with sexual intercourse. She denies any urinary complaints or bowel complains. She has good appetite. She only sleeps maybe four or five hours in The night and she wakes up with severe hot flashes at three and then she can go back to sleep. She denies any postmenopausal bleeding or spotting. She denies any breast concerns. She had a mammogram at the end of February of this year which was normal at [facility]. 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 Angelika Capone MD [address], [address], [facility] - Angelika Capone MD [facility] 03/30/2019 15:36:01 04/10/2020 text/html Annual [employer]WO[employer] M[employer]ER Pap/PelvicReported bypatient.Notes:59 years old white female here for an annual [employer]YWOOD MATCHER examination. Patient today offers no PLYWOOD MATCHER complains. She was placed on HRT earlier this year. She had breakthrough bleeding f. Patient went off of the HRT since then she has not had any bleeding at all. Patient is still has some mild hot flashes and night sweats but she is doing fine without the HRT for now she has also has some dryness for which you this [id number]-[id number] lubricants. She has been retired. She's been staying healthy. 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 Patient denies any weight loss of weight gain but she states she is trying to lose weight. She has good appetite. She sleeps well. Denies any breast concerns. She had a mammogram yesterday at [facility] which was normal. Denies any postmenopausal bleeding or spotting. Angelika Capone MD [address] [address], [place], [address], [place] - Angelika Capone MD [facility] 04/10/2020 11:43:23 04/26/2021 text/html Annual [employer]WOOD MATCHER Pap/PelvicReported bypatient.Notes:61 years old white female here for an annual [employer]YWOOD MATCHER examination. Patient today offers no PLYWOOD MATCHER complains. On questioning she denies any postmenopausal bleeding or spotting she still has hot flashes and night sweats but not as bad as before she states she also has vaginally dryness with sexual intercourse. She did try estrogen in the past for hot flashes and night sweats however she states she does not want to go back on estrogen. Denies any urinary complaints or bowel complains. She has good appetite. She sleeps well. She did have a colonoscopy is and she states is good for 5 years. She had a mammogram yesterday which is normal. She denies aany weight loss or weight gain. She is good appetite. She sleeps okay. Retired. She did get the Covid vaccine. So did her . Angelika Capone MD [address], [address], [facility] - Angelika Capone MD [facility] 04/26/2021 11:16:17 04/30/2022 text/html Annual [employer]WO[employer] MATCHER Pap/PelvicReported bypatient.Notes:62 years old white female here for an annual [employer]YWOOD MATCHER examination. Patient today offers no PLYWOOD MATCHER complaints. On further questioning denies any postmenopausal bleeding. However she continues to have hot flashes and night sweats. She also has vaginal dryness. She was on HRT in the past she states I got worried about taking the medication so I stopped taking it she states. Patient is denies any urinary complaints or bowel complaints she does have issues with sleeping she falls asleep fine but then she wakes up early in the morning. Patient denies any breast concerns. She also requesting an automated breast ultrasound however she needs to check with her insurance she states. Patient denies any weight loss or weight gain. 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 Patient is had a colonoscopy less than 5 years ago and she states she had a polyp benign and she is supposed to have one 5 years from the last one. She denies any blood in the stools or black-colored stools however she states occasionally she notices some bright red bleeding secondary to hemorrhoids. Denies any nausea or bloating. Angelika Capone MD [address], [address], [facility] - Angelika Capone MD S.C. 04/30/2022 12:24:33 OBGyn Episode No OBEpisode recorded.
--- OUTSIDE RECORDS SUMMARY | 2024-12-01 14:26 | XMS_ITS | Referral Summary ---
Author Organization [address] Address [address] [place] [id number] Care Team Providers Care Blasting Entryman Name Role Phone No, Physician Primary Care Provider [phone] Encounters Date Type Department Care Team Description 09/23/2024 Telephone [facility] [address] [place] [address] No, Physician from Last 3 Months Allergies No known active allergies Medications aspirin 81 mg enteric coated tablet Take 1 tablet (81 mg total) by mouth daily 01/12/2024 5 Active rosuvastatin (CRESTOR) 20 mg tablet Take 1 tablet (20 mg total) by mouth daily 30 tablet 11 02/03/2024 5 Active Active Problems Problem Noted Date Diagnosed Date Chronic right-sided thoracic back pain Assessment & Plan (06/20/2024 1:23 PM [employer]): - No red flag symptoms at this [...] visit. Assessment & Plan (06/20/2024 1:20 PM [employer]): - Chronic, stable - continue continue crestor Assessment & Plan (12/16/2023 12:14 PM CDT): - chronic, likely not well controlled given that she has been out of medication - refill Lipitor - recheck lipid panel today Elevated LFTs 03/13/2021 Overview (07/22/2023): Last Assessment & Plan: Trending down on most recent labs. Repeat prior to next visit. Assessment & Plan (06/20/2024 1:21 PM [employer]): - Repeat LFTS now that she has [...] sinus rhythm without any evidence of ischemia. 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 Not on file Not on file No t on file Last Filed Vital Signs Vital Sign Reading Time Taken Comments Blood Pressure 140/80 08/16/2024 10:01 AM [employer] Pulse 69 06/22/2024 1:46 PM [employer] Temperature 36.8 C (98.2 F) 06/22/2024 1:46 PM [employer] Respiratory Rate 18 06/20/2024 11:13 AM [employer] Oxygen Saturation 95% 06/20/2024 11:13 AM [employer] Inhaled Oxygen Concentration - - Weight 78.2 kg (172 lb 6.4 oz) 08/16/2024 10:01 AM [employer] Height 162.6 cm (5' 4 ) 08/16/2024 10:01 AM [employer] Body Mass Index 29.59 08/16/2024 10:01 AM [employer] Plan of Treatment Not on file Procedures Procedure Name Priority Date/Time Associated Diagnosis Comments HEPATIC FUNCTION PANEL Routine 09/23/2024 8:01 AM [employer] Abnormal laboratory test Elevated LFTs Mixed hyperlipidemia LIPID PANEL Routine 09/23/2024 8:00 AM [employer] Abnormal laboratory test Elevated LFTs Mixed hyperlipidemia [...] (ABNORMAL) Hepatic function panel (09/23/2024 8:01 AM [employer]) Pathologist [facility] Protein, Total 7.2 6.4 - 8.4 g/dL [...] [facility] Blood 09/23/2024 8:01 AM [employer] 09/23/2024 8:01 AM [employer] Narrative [facility] - 09/24/2024 2:13 AM [employer] FASTING:YES FASTING: YES us Gabrielle Hoffman MD LAB BLOOD ORDERABLES Final Result Performing Organization Address [facility]/ZIP Co de Phone Number MARQU[facility] [address] [address] [place] [phone] * Lipid panel (09/23/2024 8:00 AM [employer]) Pathologist [facility] Cholesterol 153 <200 mg/dL [facility] [...] factors. LDL-C is now calculated using the Swapnil calculation, which is a validated novel method providing better accuracy than the Friedewald equation in the estimation of LDL-C. Taj AZUL et al. ELIAS. 2013;310(19): 9874-6989 (http://education.Jijindou.com/faq/ODZ345) Chol/HDL ratio 2.4 <5.0 (calc) [facility] Non-HDL, (LDL+VLDL) 89 <130 mg/dL (calc) [facility] Comment: For patients with diabetes plus 1 major ASCVD risk factor, treating to a non-HDL-C goal of <100 mg/dL (LDL-C of <70 mg/dL) is considered a therapeutic option. Blood 09/23/2024 8:00 AM [employer] 09/23/2024 8:00 AM [employer] Narrative [facility] - 09/24/2024 3:04 AM [employer] FASTING:YES FASTING: YES us Gabrielle Hoffman MD LAB BLOOD ORDERABLES Final Result Performing Organization Address [facility]/ZIP Co de Phone Number [facility] [address] [address] [phone] * Hepatitis panel, acute Blood (01/14/2024 7:56 AM CDT) Hep A IgM NON-REACTI VE NON-REACT EVIN [facility] Comment: For additional information, please refer to http://Xylo.ActiveReplay/faq/JAE024 (This link is being provided for informational/ educational purposes only.) HepBsAg NON-REACTI VE NON-REACT EVIN [facility] Comment: For additional information, please refer to http://BioPheresis/faq/QOH938 (This link is being provided for informational/ educational purposes only.) Hep B core IgM NON-REACTI VE NON-REACT EVIN [facility] Comment: For additional information, please refer to http://BioPheresis/faq/VYD771 (This link is being provided for informational/ educational purposes only.) Hep C Ab NON-REACTI VE NON-REACT EVIN [facility] Comment: HCV antibody was non-reactive. There is no laboratory evidence of HCV infection. In most cases, no further action is required. However, if recent HCV exposure is suspected, a test for HCV RNA (test code 70580) is suggested. For additional information please refer to http://BioPheresis/faq/NWD89r0 (This link is being provided for informational/ educational purposes only.) Blood 01/14/2024 7:56 AM CDT 01/14/2024 7:57 AM CDT Narrative [facility] - 01/15/2024 7:46 AM CDT FASTING:YES FASTING: YES us Gabrielle Hoffman MD LAB MICROBIOLOGY - GENERAL ORDERABLES Final Result [facility] [address] [place] [phone] * Screening Mammogram Bilateral W Tommy (12/14/2023 [...] MAMMOGRAM BILATERAL W TOMMY ORDERING HEALTHCARE PROVIDER: NIDHI HERNANDEZ HISTORY: Routine screening mammography. COMPARISON: Prior mammograms from [facility] ([place], [place]) dated 05/30/2022 and 04/25/2021. TECHNIQUE: CC [...] Most Recently Relevant to Health Maintenance [place] [address] [facility] [place] [address] [facility] [place] [address] [facility] H[facility]/POS Care Teams Blasting Entryman Relationship Specialty Start Date End Date No, Physician PCP - General 11/17/24
--- NOTE | 2024-12-01 14:29 | ED_ITS ---
HPI - General Adult General Chief complaint: Upper Respiratory Infection Stated complaint: Having trouble walking Time Seen by Provider: 12/01/24 14:32 Source: patient and RN notes reviewed Mode of arrival: ambulatory Limitations: no limitations History of Present Illness HPI narrative: 64-year-old female presented for complaint of feeling off balance intermittently for 3 weeks. Symptoms are more persistent today, and had nausea/vomiting this morning. Pt says her head and ears feel full. Says that she sits up in the morning or if she sleeps propped up it helps the fullness. Taking sudafed x1 week, afrin x2 days. Denies room spinning, and says it does not feel like vertigo she has had in the past. Denies chest pain, palpitations, fever, headache, vision changes, hearing loss, tinnitus, or lethargy. Establishing with a new pcp in May. Related Data Home Medications ?Medication ?Instructions ?Recorded ?Confirmed ?Last Taken ?Type atorvastatin 10 mg tablet 10 mg PO DAILY 12/25/23 12/01/24 Unknown History aspirin 12/01/24 Unknown History Allergies Allergy/AdvReac Type Severity Reaction Status Date / Time No Known Allergies Allergy Verified 12/01/24 14:33 Review of Systems Review of Systems: per HPI All systems reviewed & are unremarkable except as noted in HPI and below PMFSH Past Medical History Medical History (Updated 12/01/24 @ 14:50 by Monique Acuna APRN) Serum cholesterol elevated Surgical History Surgical History (Updated 12/25/23 @ 09:39 by Yuliet Barcenas NP) History of dilatation and curettage Social History Social History (Updated 12/25/23 @ 09:39 by Yuliet Barcenas NP) Smoking status: Never smoker Alcohol intake: current Alcohol use details: social Substance use type: does not use Living arrangements: with family Gender identity (if verbalized by the patient): Female Comments At time of signature, I have reviewed and agree with nursing past medical, surgical, social and family history unless otherwise noted. Please see nursing chart for further information. There is no relevant family history pertinent to the presenting complaint Exam Narrative: GENERAL: Well-appearing HEAD: Normocephalic, atraumatic. EYES: PERRLA, EOMI. ENT: Mucous membranes pink and moist. No rhinorrhea. TMs normal light reflex, left with clear effusion. NECK: Normal AROM. Supple. No lymphadenopathy. CHEST: No respiratory distress. Clear to auscultation. HEART: Regular rate and rhythm. No murmur appreciated. Normal peripheral pulses. SKIN: Warm, dry, no rash. Capillary refill normal. Normal skin turgor. NEURO:No focal deficits. Alert and oriented x3. Finger to nose intact bilaterally. EOMs intact without nystagmus. No facial droop/asymmetry noted bilaterally. Grimace intact. Intact sensation in face. Hearing intact bilaterally. Shoulder shrug intact. Strength 5/5 bilateral upper extremities. Ambulatory exam with a normal based, steady gait. PSYCH: Normal affect. Course Course Emergency Course: Patient is aware of diagnosis, understands and agrees to treatment plan. Anticipatory guidance given. Patient agrees to follow-up as directed and is aware of reasons to seek care at the emergency department. Portions of this record may have been created with voice recognition software Level of Care: [facility] Visit Medical Decision Making MDM Narrative Medical decision making narrative: The patient was evaluated in the [facility] for dizziness for weeks. Denies headache. There are no focal deficits on exam. There is no history of fever, neck is supple without meningismus. Meningitis is felt to be unlikely. No traumatic history or signs of trauma on exam. Risk factors for cerebral venous thrombosis reviewed,and appears unlikely. No ocular signs of acute glaucoma. Discussed physical exam findings most c/w labyrinthitis but offered ER transfer for further evaluation as she does not have a pcp established. She declines at this time. Shared decision making, agreeable to abx and steroid. Advised supportive measures and signs/symptoms to go to the ER. Pt is appropriate for outpt treatment and f/u. Differential Diagnosis Differential Diagnosis: hypertension, hypertensive urgency/crisis, headache, migraine, CVA, aneurysm, vertigo Vital Signs Vital Signs: reviewed Discharge Plan Discharge Clinical Impression: Vertigo Patient Disposition: Home Condition: Stable Instructions: Antibiotic Form, Vertigo (ED) Additional Instructions: You will be treated for labyrinthitis at this time, however other troublesome conditions have not been ruled out. You will need to go to the ER or follow up with your pcp for further evaluation. Take medicine as directed Change positions slowly, consider walking with an assistive device Sit down immediately if you feel dizzy or lightheaded Increase water intake, stay hydrated Flonase spray and Zyrtec (or Claritin/Sumaya) Watch for worsening symptoms (headache, vision changes, dizziness that does not go away, chest pain, heart racing, sweating) Go to the ER for these symptoms or any other concerns. follow-up with your primary care provider. Patient Language: Finnish Prescriptions: New prednisone 20 mg tablet 40 mg PO DAILY 4 Days Qty: 8 0RF amoxicillin-pot clavulanate 875-125 mg tablet 1 tablet PO Q12H 7 Days Qty: 14 0RF No Action atorvastatin 10 mg tablet 10 mg PO DAILY famotidine [Pepcid] 20 mg tablet 20 mg PO DAILY Qty: 10 0RF aspirin Follow-up/Referrals: PHYSICIAN,HEMATOLOGY TECHNICIAN [Primary Care Provider] - Quality Ward Coma Scale Verbal: Oriented and Alert Motor: Follows Commands Acute Stroke Pre-Treatment Evaluation Acute Ischemic Stroke Pretreatment Evaluation: Acute Ischemic Stroke Pre- Treatment Evaluation Inclusion Criteria (must answer yes to questions 1 and 2) 1. Age 18 Years Or Older: No 2. Onset Of Stroke Symptoms Well Established To Be Less Than 3 Hours: No 3. Clinical Diagnosis Of Ischemic Stroke Causing Measureable Neurological Deficit And A Non-Contrast Head CT Showing NO Hemorrage: No Contraindications (0-3 Hours) 5. Stroke Or Severe Head Trauma Within Past 3 Months: No 6. Known History Of Intracranial Hemorrage: No 7. Symptoms Or Clinical Presentation Suggestion Of Subarachnoid hemorrhage: No 8. Gastrointestinal Or Urinary Tract hemorrhage Within 21 Days: No 9. Prothrombin Time (TP) Greater Than 15 Seconds or An INR Greater Than 1.7 Or An Elevated Activated Partial Throboplastin Time (aPTT): No 10. Platelet Count <100,000/ml: No 11. Glucose Lower Than 50mg/dl Or Greater than 400mg/dl: No 12. Seizure At Onset Stroke: No 13. Acute Myocardial Infarction Or Post Myocardial Infarction Pericarditis: No 14. Arterial Puncture At A Non-Compressible Site, Biopsy of Internal Organ, Within The Preceding 7 Days: No 15. Major Surgery Or Serious Trauma (Besides Head) In The Previous 14 Days: No 16. Uncontrolled Or Sustained SBP (systolic>185 mmHg) or DBP (diastolic>110 mmHg) Or Requiring Aggressive Treatment To Lower: No 17. : No Contraindications (3-4.5 Hours) 1. Age Less Than 18 or Greater Than 80 years: No 2. Severe Stroke Assessed Clinically (NIHSS Score Greater Than 25): No 3. Combination Or Previous Stroke Or Diabetes Mellitus: No 4. Symptoms Minor Or Rapidly Improving: No
== END 2024-12-01 14:54 | disposition home or self-care (01) ==
PROVIDERS: Emergency Provider Nurse Practitioner Family
DX: R42 Dizziness and giddiness (principal)
CPT/HCPCS: 99213; G0463